=== PATIENT | male | born 1955 | race Caucasian/White ===

== ENCOUNTER 2016-05-29 05:03 | Inpatient (IN) | payer OTHER ==
[~2016-05-29] VITALS: Ht 167.6 cm; Wt 64.0 kg
[~2016-05-29 05:03] MED LIST: ASPIR-LOW81 MG PO; BACTRIM,SEPT1 TABLET PO; COZAAR50 MG PO; DESYREL 150 MG150 MG PO; FLOMAX0.4 MG PO; METFORMIN HCL1000 MG PO; METOPROLOL SUCC50 MG PO; NORVASC10 MG PO; PROTONIX40 MG PO; TRAZODONE HCL100 MG PO
[2016-05-29 06:33] LABS: EOSINOPHIL (%) 0.1 % (0-5); HEMATOCRIT 35.7 % (38.0-50.0); IMMATURE GRANULOCYTE (%) 0.3 % (0.0-0.7); IMMATURE GRANULOCYTE COUNT 0.1 K/uL; INSTRUMENT ABS NEUTROPHIL CT 12.9 K/uL; LYMPHOCYTE COUNT 1.2 K/uL (1.0-2.8); MCH 25.9 PG (29.0-34.0); MCHC 35.3 G/DL (30.0-36.0); MCV 73.3 FL (86-99); MEAN PLAT.VOLUME 9.5 uM^3 (9.0-12.4); MONOCYTE COUNT 0.8 K/uL (0-0.8); NEUTROPHIL (%) 86.7 % (45-76); NEUTROPHIL COUNT 12.9 K/uL (1.8-6.4); PLATELET COUNT 327 K/uL (156-360); RBC DIS.WIDTH-CV 13.5 % (11.8-14.6); RBC DIS.WIDTH-SD 35.9 % (39-53); RED BLOOD COUNT 4.87 M/uL (4.00-5.50); WHITE BLOOD COUNT 14.9 K/uL (4.1-10.2)
[2016-05-29 06:36] LABS: CHLORIDE 80 mEq/L (99-109); POTASSIUM 4.2 mEq/L (3.7-5.4)
[2016-05-29 06:38] LABS: GLUCOSE 126 mg/dL (70-99)
[2016-05-29 06:40] LABS: ANION GAP 13 MEQ/L (2-14); TOTAL BILIRUBIN 0.9 mg/dL (0.0-1.0)
[2016-05-29 06:41] LABS: SODIUM 113 mEq/L (136-147)
[2016-05-29 06:42] LABS: ALKALINE PHOSPHATASE 97 IU/L (3-129); GFR ESTIMATE (CALCULATED) > 59 mL/min/
[2016-05-29 06:45] LABS: LIPASE 16 U/L (1.0-51.0)
[2016-05-29 06:46] LABS: TROP-I INTERPRETATION NEGATIVE; TROPONIN-I 0.15 ng/mL (0.0-0.30)
[2016-05-29 06:49] LABS: UREA NITROGEN (BUN) 10 mg/dL (9-23)
[2016-05-29 08:33] LABS: ADD MIUA? YES; BILIRUBIN NEGATIVE; BLOOD SMALL; COLOR STRAW ((YELLOW)); GLUCOSE (STRIP) 50; KETONES NEGATIVE; LEUKOCYTES MODERATE; NITRITE NEGATIVE; PROTEIN (STRIP) NEGATIVE; SPECIFIC GRAVITY 1.009 (1.000-1.030); UROBILINOGEN 0.2 MG/DL (0.2-1.0)
[2016-05-29 08:49] LABS: BACTERIA NONE SEEN /HPF; EPITHELIAL CELLS NONE SEEN /HPF; MUCUS TRACE /LPF; RED BLOOD CELLS 0-5 /HPF (0-5); UCUL ADDED? NO
[2016-05-29] MEDS ORDERED: APRESOLINE100 MG PO (09:03)
[2016-05-29] MEDS ORDERED: KLONOPIN1 MG PO (09:05)
[2016-05-29] MEDS ORDERED: GLUCOPHAGE500 MG PO (09:06)
[2016-05-29] MEDS ORDERED: COREG12.5 M1 PO (09:07)
[2016-05-29] MEDS ORDERED: LOW DOSE ASPIRI81 M1 PO (09:07)
[2016-05-29] MEDS ORDERED: VENLAFAXINE HC100 MG PO (09:09)
[2016-05-29] MEDS ORDERED: NORVASC5 MG PO (09:10)
[2016-05-29] MEDS ORDERED: CATAPRES0.1 MG PO ×2 (09:11→09:22)
[2016-05-29] MEDS ORDERED: PRILOSEC OTC20 MG PO (09:13)
[2016-05-29] MEDS ORDERED: LIPITOR40 MG PO (09:14)
[2016-05-29] MEDS ORDERED: HALDOL1 MG PO (09:14)
[2016-05-29] MEDS ORDERED: SEROQUEL50 MG PO (09:15)
[2016-05-29] MEDS ORDERED: TYLENOL REGULA325 MG PO (09:18)
[2016-05-29] MEDS ORDERED: ATIVAN0.5 MG PO (09:20)
[2016-05-29] MEDS ORDERED: DULCOLAX10 MG PR (09:22)
[2016-05-29] MEDS ORDERED: MILK OF MAGN PO (09:24)
[2016-05-29] MEDS ORDERED: FLEET ENEMA-AD118 ML PR (09:24)
[2016-05-29 09:33] LABS: CREATININE 0.7 mg/dL (0.6-1.3); POTASSIUM 3.8 mEq/L (3.7-5.4)
[2016-05-29 10:27] LABS: CREATINE KINASE 701 IU/L (1-294)
[2016-05-29 12:38] LABS: POTASSIUM 3.5 mEq/L (3.7-5.4)
[2016-05-29 12:40] LABS: CHLORIDE 90 mEq/L (99-109); GLUCOSE 131 mg/dL (70-99); SODIUM 121 mEq/L (136-147)
[2016-05-29 12:42] LABS: ANION GAP 12 MEQ/L (2-14)
[2016-05-29 12:44] LABS: GFR ESTIMATE (CALCULATED) > 59 mL/min/
[2016-05-29 12:45] LABS: UREA NITROGEN (BUN) 8 mg/dL (9-23)
[2016-05-29 15:15] VITALS: BP 172/95
[2016-05-29 16:16] LABS: ANION GAP 15 MEQ/L (2-14); CHLORIDE 91 MEQ/L (99-109); POTASSIUM 3.7 MEQ/L (3.7-5.4); SAMPLE HEMOLYSIS CHECK 0; SAMPLE ICTERIC CHECK 0; SAMPLE LIPEMIA CHECK 0; SODIUM 123 MEQ/L (136-147)
[2016-05-29 16:20] VITALS: BP 172/95
[2016-05-29 16:22] LABS: GFR ESTIMATE (CALCULATED) > 59 mL/min/; GLUCOSE 115 mg/dL (70-99); UREA NITROGEN (BUN) 8 mg/dL (9-23)
[2016-05-29 17:43] LABS: ANION GAP 14 MEQ/L (2-14); CHLORIDE 89 MEQ/L (99-109); GFR ESTIMATE (CALCULATED) > 59 mL/min/; GLUCOSE 131 mg/dL (70-99); POTASSIUM 3.3 MEQ/L (3.7-5.4); SAMPLE HEMOLYSIS CHECK 0; SAMPLE ICTERIC CHECK 0; SAMPLE LIPEMIA CHECK 0; SODIUM 122 MEQ/L (136-147); UREA NITROGEN (BUN) 8 mg/dL (9-23)
[2016-05-29 19:10] LABS: ANION GAP 12 MEQ/L (2-14); CHLORIDE 90 MEQ/L (99-109); GFR ESTIMATE (CALCULATED) > 59 mL/min/; GLUCOSE 180 mg/dL (70-99); POTASSIUM 3.1 MEQ/L (3.7-5.4); SAMPLE HEMOLYSIS CHECK 0; SAMPLE ICTERIC CHECK 0; SAMPLE LIPEMIA CHECK 0; SODIUM 121 MEQ/L (136-147); UREA NITROGEN (BUN) 9 mg/dL (9-23)
[2016-05-29 19:40] LABS: METH RESISTANT S AUREUS PCR NEGATIVE (NEGATIVE)
[2016-05-29 19:43] LABS: PROBE CHECK PASS; SPECIMEN PROCESSING CONTROL PASS
[2016-05-29 20:21] VITALS: BP 128/68
[2016-05-29 21:18] LABS: ANION GAP 12 MEQ/L (2-14); CHLORIDE 89 MEQ/L (99-109); GFR ESTIMATE (CALCULATED) > 59 mL/min/; POTASSIUM 3.2 MEQ/L (3.7-5.4); SAMPLE HEMOLYSIS CHECK 0; SAMPLE ICTERIC CHECK 0; SAMPLE LIPEMIA CHECK 0; SODIUM 121 MEQ/L (136-147); UREA NITROGEN (BUN) 10 mg/dL (9-23)
[2016-05-29 21:20] LABS: GLUCOSE 104 mg/dL (70-99)
[2016-05-29 23:30] LABS: CHLORIDE 92 mEq/L (99-109); SODIUM 122 mEq/L (136-147)
[2016-05-29 23:32] LABS: GLUCOSE 102 mg/dL (70-99)
[2016-05-29 23:33] LABS: ANION GAP 11 MEQ/L (2-14)
[2016-05-29 23:35] LABS: POTASSIUM 3.9 mEq/L (3.7-5.4)
[2016-05-29 23:36] LABS: GFR ESTIMATE (CALCULATED) > 59 mL/min/
[2016-05-29 23:37] LABS: UREA NITROGEN (BUN) 10 mg/dL (9-23)
[2016-05-30] VITALS (9 sets, daily range): BP systolic 84–149; BP diastolic 51–91
[2016-05-30 01:17] LABS: CHLORIDE 91 mEq/L (99-109); POTASSIUM 3.6 mEq/L (3.7-5.4); SODIUM 120 mEq/L (136-147)
[2016-05-30 01:18] LABS: GLUCOSE 118 mg/dL (70-99)
[2016-05-30 01:20] LABS: ANION GAP 9 MEQ/L (2-14)
[2016-05-30 01:22] LABS: GFR ESTIMATE (CALCULATED) > 59 mL/min/
[2016-05-30 01:23] LABS: UREA NITROGEN (BUN) 11 mg/dL (9-23)
[2016-05-30 03:13] LABS: CHLORIDE 91 mEq/L (99-109); POTASSIUM 3.7 mEq/L (3.7-5.4); SODIUM 121 mEq/L (136-147)
[2016-05-30 03:15] LABS: GLUCOSE 108 mg/dL (70-99)
[2016-05-30 03:17] LABS: ANION GAP 10 MEQ/L (2-14)
[2016-05-30 03:19] LABS: GFR ESTIMATE (CALCULATED) > 59 mL/min/
[2016-05-30 03:20] LABS: UREA NITROGEN (BUN) 11 mg/dL (9-23)
[2016-05-30 07:08] LABS: ANION GAP 8 MEQ/L (2-14); CHLORIDE 90 MEQ/L (99-109); GFR ESTIMATE (CALCULATED) > 59 mL/min/; GLUCOSE 103 mg/dL (70-99); POTASSIUM 3.6 MEQ/L (3.7-5.4); SAMPLE HEMOLYSIS CHECK 0; SAMPLE ICTERIC CHECK 0; SAMPLE LIPEMIA CHECK 0; SODIUM 120 MEQ/L (136-147); UREA NITROGEN (BUN) 12 mg/dL (9-23)
[2016-05-30 07:29] LABS: HEMATOCRIT 31.4 % (38.0-50.0); MCHC 34.4 G/DL (30.0-36.0); MCV 75.7 FL (86-99); MEAN PLAT.VOLUME 9.7 uM^3 (9.0-12.4); PLATELET COUNT 252 K/uL (156-360); RBC DIS.WIDTH-CV 14.4 % (11.8-14.6); RBC DIS.WIDTH-SD 38.5 % (39-53); RED BLOOD COUNT 4.15 M/uL (4.00-5.50); WHITE BLOOD COUNT 7.6 K/uL (4.1-10.2)
[2016-05-30 12:29] LABS: ANION GAP 10 MEQ/L (2-14); CHLORIDE 89 MEQ/L (99-109); GFR ESTIMATE (CALCULATED) > 59 mL/min/; GLUCOSE 88 mg/dL (70-99); POTASSIUM 3.4 MEQ/L (3.7-5.4); SAMPLE HEMOLYSIS CHECK 0; SAMPLE ICTERIC CHECK 0; SAMPLE LIPEMIA CHECK 0; SODIUM 120 MEQ/L (136-147); UREA NITROGEN (BUN) 11 mg/dL (9-23)
[2016-05-30 14:10] LABS: TROP-I INTERPRETATION NEGATIVE; TROPONIN-I 0.21 ng/mL (0.0-0.30)
[2016-05-30 14:16] LABS: D-DIMER ELISA 0.52 mg/L FEU (< 0.57)
[2016-05-30 16:25] LABS: ANION GAP 11 MEQ/L (2-14); CHLORIDE 91 MEQ/L (99-109); GFR ESTIMATE (CALCULATED) > 59 mL/min/; POTASSIUM 3.8 MEQ/L (3.7-5.4); SAMPLE HEMOLYSIS CHECK 0; SAMPLE ICTERIC CHECK 0; SAMPLE LIPEMIA CHECK 0; SODIUM 122 MEQ/L (136-147); UREA NITROGEN (BUN) 12 mg/dL (9-23)
[2016-05-30 16:31] LABS: GLUCOSE 112 mg/dL (70-99)
[2016-05-30 21:17] LABS: ANION GAP 10 MEQ/L (2-14); CHLORIDE 93 MEQ/L (99-109); GFR ESTIMATE (CALCULATED) > 59 mL/min/; GLUCOSE 147 mg/dL (70-99); POTASSIUM 4.4 MEQ/L (3.7-5.4); SAMPLE HEMOLYSIS CHECK 0; SAMPLE ICTERIC CHECK 0; SAMPLE LIPEMIA CHECK 0; SODIUM 122 MEQ/L (136-147); UREA NITROGEN (BUN) 13 mg/dL (9-23)
[2016-05-31 00:05] VITALS: BP 127/69
[2016-05-31 04:05] VITALS: BP 125/70
[2016-05-31 06:36] LABS: EOSINOPHIL (%) 0 % (0-5); IMMATURE GRANULOCYTE (%) 0.9 % (0.0-0.7); IMMATURE GRANULOCYTE COUNT 0.1 K/uL; INSTRUMENT ABS NEUTROPHIL CT 6.1 K/uL; LYMPHOCYTE COUNT 0.6 K/uL (1.0-2.8); MCH 26.2 PG (29.0-34.0); MCHC 34.4 G/DL (30.0-36.0); MCV 76.2 FL (86-99); MEAN PLAT.VOLUME 9.4 uM^3 (9.0-12.4); MONOCYTE (%) 3.7 % (3-12); MONOCYTE COUNT 0.3 K/uL (0-0.8); NEUTROPHIL (%) 86.7 % (45-76); NEUTROPHIL COUNT 6.1 K/uL (1.8-6.4); PLATELET COUNT 249 K/uL (156-360); RBC DIS.WIDTH-CV 14.4 % (11.8-14.6); RBC DIS.WIDTH-SD 39.5 % (39-53)
[2016-05-31 07:02] LABS: ANION GAP 8 MEQ/L (2-14); CHLORIDE 96 MEQ/L (99-109); GFR ESTIMATE (CALCULATED) > 59 mL/min/; GLUCOSE 130 mg/dL (70-99); POTASSIUM 4.2 MEQ/L (3.7-5.4); SAMPLE HEMOLYSIS CHECK 0; SAMPLE ICTERIC CHECK 0; SAMPLE LIPEMIA CHECK 0; SODIUM 125 MEQ/L (136-147); UREA NITROGEN (BUN) 14 mg/dL (9-23)
[2016-05-31 07:30] VITALS: BP 154/86
[2016-05-31 11:31] VITALS: BP 129/82
[2016-05-31 15:00] VITALS: BP 118/72
[2016-05-31 19:10] VITALS: BP 137/75
[2016-06-01] VITALS (7 sets, daily range): BP systolic 112–135; BP diastolic 68–73
[2016-06-01 08:41] LABS: POINT-OF-CARE METER ID UU14174216; POINT-OF-CARE USER ID NUTSLF44
[2016-06-01 09:36] LABS: BASOPHIL COUNT 0.1 K/uL (0-0.1); EOSINOPHIL (%) 1.1 % (0-5); EOSINOPHIL COUNT 0.1 K/uL (0-0.3); HEMATOCRIT 34.9 % (38.0-50.0); IMMATURE GRANULOCYTE (%) 0.3 % (0.0-0.7); INSTRUMENT ABS NEUTROPHIL CT 7.2 K/uL; LYMPHOCYTE COUNT 1.6 K/uL (1.0-2.8); MCH 26.2 PG (29.0-34.0); MCHC 33.2 G/DL (30.0-36.0); MEAN PLAT.VOLUME 9.9 uM^3 (9.0-12.4); MONOCYTE (%) 6.5 % (3-12); MONOCYTE COUNT 0.6 K/uL (0-0.8); NEUTROPHIL (%) 74.8 % (45-76); NEUTROPHIL COUNT 7.2 K/uL (1.8-6.4); PLATELET COUNT 274 K/uL (156-360); RBC DIS.WIDTH-CV 14.9 % (11.8-14.6); RBC DIS.WIDTH-SD 43.2 % (39-53); RED BLOOD COUNT 4.42 M/uL (4.00-5.50)
[2016-06-01 09:39] LABS: WHITE BLOOD COUNT 9.6 K/uL (4.1-10.2)
[2016-06-01 11:26] LABS: ANION GAP 8 MEQ/L (2-14); CHLORIDE 101 MEQ/L (99-109); GFR ESTIMATE (CALCULATED) > 59 mL/min/; GLUCOSE 117 mg/dL (70-99); POTASSIUM 3.6 MEQ/L (3.7-5.4); SAMPLE HEMOLYSIS CHECK 0; SAMPLE ICTERIC CHECK 0; SAMPLE LIPEMIA CHECK 0; SODIUM 132 MEQ/L (136-147); UREA NITROGEN (BUN) 15 mg/dL (9-23)
[2016-06-02 03:19] VITALS: BP 140/85
[2016-06-02 06:59] VITALS: BP 128/73
[2016-06-02 11:30] VITALS: BP 112/74
[2016-06-02] MEDS ORDERED: DUONEB 2.5-0.5 M3 ML AEROSOL (12:38)
[2016-06-02] MEDS ORDERED: KLONOPIN1 MG PO (12:40)
[2016-06-02] MEDS ORDERED: ATIVAN0.5 MG PO (12:40)
[2016-06-02] MEDS ORDERED: AUGMENTIN875 MG PO (12:40)
== END 2016-06-02 11:50 | DRG 641 ==
LOC: EME → EDBD 05:03 → EME 05:03 → 4EAST 12:44 → EDOF 12:44 → 4EAST 15:09
PROVIDERS: Emergency Medicine; Family Medicine; Internal Medicine; Internal Medicine Nephrology
DX: E87.1 Hypo-osmolality and hyponatremia (principal); M62.82 Rhabdomyolysis; F03.91 Unspecified dementia, unspecified severity, with behavioral disturbance; E11.9 Type 2 diabetes mellitus without complications; F33.9 Major depressive disorder, recurrent, unspecified; I10 Essential (primary) hypertension; E87.8 Other disorders of electrolyte and fluid balance, not elsewhere classified; E86.0 Dehydration; D72.829 Elevated white blood cell count, unspecified; K21.9 Gastro-esophageal reflux disease without esophagitis; F41.9 Anxiety disorder, unspecified; D64.9 Anemia, unspecified; T17.920A Food in respiratory tract, part unspecified causing asphyxiation, initial encounter; Z86.73 Personal history of transient ischemic attack (TIA), and cerebral infarction without residual deficits; E87.6 Hypokalemia; R13.10 Dysphagia, unspecified; Y92.239 Unspecified place in hospital as the place of occurrence of the external cause
CPT/HCPCS: 70450; 70496; 70498; 71010; 71020; 74230; 80047; 80048; 80048 91; 80053; 80202; 81003; 82436; 82550; 82948; 83605; 83690; 83935; 84133; 84300; 84484; 85025; 85027; 85379; 87040; 87070; 87077; 87641; 87801; 92610 GN; 92611 GN; 93005; 94640; 94640 76; 94667; 94668; 94799; 99202; 99281; 99285; J0696; J1630; J1650; J2543; J2597; J2930; J3370; J7030; J7050; J7070

== ENCOUNTER 2016-06-09 17:26 | Emergency (ER) | payer OTHER ==
[~2016-06-09] VITALS: Ht 167.6 cm; Wt 72.6 kg
[~2016-06-09 17:26] MED LIST changes: +APRESOLINE100 MG PO; +ATIVAN0.5 MG PO; +AUGMENTIN875 MG PO; +CATAPRES0.1 MG PO; +COREG12.5 M1 PO; +DULCOLAX10 MG PR; +DUONEB 2.5-0.5 M3 ML AEROSOL; +FLEET ENEMA-AD118 ML PR; +GLUCOPHAGE500 MG PO; +HALDOL1 MG PO; +KLONOPIN1 MG PO; +LIPITOR40 MG PO; +LOW DOSE ASPIRI81 M1 PO; +MILK OF MAGN PO; +NORVASC5 MG PO; +PRILOSEC OTC20 MG PO; +SEROQUEL50 MG PO; +TYLENOL REGULA325 MG PO; +VENLAFAXINE HC100 MG PO
[2016-06-09 18:57] LABS: ADD MIUA? YES; BILIRUBIN NEGATIVE; BLOOD NEGATIVE; COLOR YELLOW ((YELLOW)); GLUCOSE (STRIP) NEGATIVE; KETONES NEGATIVE; LEUKOCYTES LARGE; NITRITE NEGATIVE; PROTEIN (STRIP) NEGATIVE; UROBILINOGEN 0.2 MG/DL (0.2-1.0)
[2016-06-09 19:08] LABS: BASOPHIL COUNT 0.1 K/uL (0-0.1); EOSINOPHIL (%) 1.5 % (0-5); EOSINOPHIL COUNT 0.2 K/uL (0-0.3); HEMATOCRIT 36.8 % (38.0-50.0); IMMATURE GRANULOCYTE (%) 0.3 % (0.0-0.7); INSTRUMENT ABS NEUTROPHIL CT 7.4 K/uL; LYMPHOCYTE COUNT 2.5 K/uL (1.0-2.8); MCH 26.2 PG (29.0-34.0); MCHC 33.7 G/DL (30.0-36.0); MCV 77.8 FL (86-99); MEAN PLAT.VOLUME 9.1 uM^3 (9.0-12.4); MONOCYTE (%) 7.3 % (3-12); MONOCYTE COUNT 0.8 K/uL (0-0.8); NEUTROPHIL (%) 67.4 % (45-76); NEUTROPHIL COUNT 7.4 K/uL (1.8-6.4); PLATELET COUNT 328 K/uL (156-360); RBC DIS.WIDTH-CV 14.6 % (11.8-14.6); RBC DIS.WIDTH-SD 40.8 % (39-53); RED BLOOD COUNT 4.73 M/uL (4.00-5.50)
[2016-06-09 19:17] LABS: CHLORIDE 101 mEq/L (99-109)
[2016-06-09 19:18] LABS: POTASSIUM 3.7 mEq/L (3.7-5.4); SODIUM 134 mEq/L (136-147)
[2016-06-09 19:19] LABS: GLUCOSE 89 mg/dL (70-99)
[2016-06-09 19:20] LABS: BACTERIA 1+ /HPF; EPITHELIAL CELLS 1+ /HPF; MUCUS NONE SEEN /LPF; RED BLOOD CELLS RARE /HPF (0-5); WHITE BLOOD CELLS TNTC /HPF (0-5)
[2016-06-09 19:21] LABS: ANION GAP 11 MEQ/L (2-14)
[2016-06-09 19:23] LABS: GFR ESTIMATE (CALCULATED) > 59 mL/min/
[2016-06-09 19:24] LABS: UREA NITROGEN (BUN) 16 mg/dL (9-23)
[2016-06-09 19:30] LABS: TROP-I INTERPRETATION NEGATIVE; TROPONIN-I < 0.01 ng/mL (0.0-0.30)
[2016-06-09] MEDS ORDERED: BACTRIM,SEPT1 TABLET PO (19:54)
[2016-06-09 22:08] VITALS: BP 144/101
== END 2016-06-09 22:10 ==
LOC: EME → EDBD 17:26 → EME 17:26
PROVIDERS: Emergency Medicine
DX: N39.0 Urinary tract infection, site not specified (principal); F03.90 Unspecified dementia, unspecified severity, without behavioral disturbance, psychotic disturbance, mood disturbance, and anxiety; E11.9 Type 2 diabetes mellitus without complications; I10 Essential (primary) hypertension; E78.5 Hyperlipidemia, unspecified; Z79.82 Long term (current) use of aspirin; F17.200 Nicotine dependence, unspecified, uncomplicated
CPT/HCPCS: 80048; 81003; 84484; 85025; 93005; 99281; 99284; J0696; J7050